=== PATIENT | female | born 1985 | race Caucasian/White ===

== ENCOUNTER 2022-09-11 18:55 | Emergency (ER) | payer OTHER, MEDICAID, SELFPAY ==
[2022-09-11] VITALS (12 sets, daily range): BP systolic 101–135; BP diastolic 61–81; PULSE 78–91; RESP 12–23; TEMP 36.7; O2SAT 96–100; BMI 31.6
--- NOTE | 2022-09-11 19:03 | DI.RAD.S_ITS ---
PROCEDURE: XR CHEST 1V INDICATIONS: chest pain TECHNIQUE: One view of the chest was acquired. COMPARISON: None. FINDINGS: Surgical changes and devices: None. Lungs and pleura: Lungs are clear. No pleural effusions or pneumothorax. Mediastinum: Mediastinal contours appear normal. Heart size is normal. Bones and chest wall: No suspicious bony lesions. Overlying soft tissues appear unremarkable. There is leftward curvature of the thoracic spine. IMPRESSION: No acute cardiopulmonary abnormality. Dictated by: Miguel A Jackson M.D. on 09/11/2022 at 18:39 Approved by: Miguel A Jackson M.D. on 09/11/2022 at 18:40
--- NOTE | 2022-09-11 19:13 | PC.NURSE ---
Recently off amlodipine 3-4 days ago. Recent weight loss of 29 lbs in about 3-4 months.
[2022-09-11 19:17] LABS: INR 0.9 (0.9-1.3); Prothrombin Time 10.5 SECONDS (10.1-12.7)
[2022-09-11 19:18] LABS: Add Manual Diff / Slide Review NO; Basophils Absolute Auto 200 /uL (0-100); Basophils Percent Auto 2.1 % (0-2); Eosinophils Absolute Auto 200 /uL (0-450); Eosinophils Percent Auto 2.3 % (2-4); Hematocrit 42.5 % (36-46); Hemoglobin 14.4 g/dL (12.0-16.0); Lymphocytes Absolute Auto 2400 /uL (1100-4500); Lymphocytes Percent Auto 28.3 % (25-40); Mean Corpuscular Hemoglobin 31.8 PG (26-34); Mean Corpuscular Volume 93.5 fL (80-100); Monocytes Absolute Auto 500 /uL (0-900); Monocytes Percent Auto 6.3 % (3-14); Neutrophils Absolute Auto 5300 /uL (1500-7000); Platelet Count 278 X10^3/uL (150-400); Red Blood Cell Count 4.54 X10^6/uL (4.0-5.2); White Blood Cell Count 8.6 X10^3/uL (4.5-11.0)
[2022-09-11 19:19] LABS: PTT Partial Thromboplastin Tim 26 SECONDS (26-36)
[2022-09-11] MEDS: ASPIRIN 81 MG CHEW TAB 324 MG PO (19:20)
[2022-09-11 19:21] LABS: Alanine Aminotransferase 23 IU/L (<35); Albumin 4.2 g/dL (3.5-5.0); Albumin Globulin Ratio 1.2 (1.0-2.8); Alkaline Phosphatase 66 U/L (38-126); Aspartate Aminotransferase 23 IU/L (14-36); BUN Creatinine Ratio 14.1 (6-22); Bilirubin Total 0.3 mg/dL (0.2-1.3); Blood Urea Nitrogen 10 mg/dL (7-17); Calcium 9.2 mg/dL (8.4-10.2); Carbon Dioxide 18 mmol/L (22-32); Chloride 107 mmol/L (98-107); Creatine Kinase 48 U/L (30-135); Estimated Glomerular Filt Rate > 60 mL/min (>60); Globulin 3.5 g/dL (1.7-4.1); Glucose 101 mg/dL (70-100); HEMOLYSIS < 15 (0-50); Lipase 79 U/L (23-300); Magnesium 2.1 mg/dL (1.6-2.3); Potassium 3.7 mmol/L (3.4-5.1); Sodium 139 mmol/L (137-145); Total Protein 7.7 g/dL (6.3-8.2)
[2022-09-11 19:32] LABS: Troponin I < 0.012 ng/mL (0.01-0.034)
[2022-09-11 19:38] LABS: D Dimer 1664 ng/ml (<500)
[2022-09-11] MEDS: SODIUM CHLORIDE 0.9% 1,000 ML 1000 ML IV (19:49)
--- NOTE | 2022-09-11 20:29 | PC.NURSE ---
Recent travel one week ago via airplane. Pt is on control. Provider aware.
--- NOTE | 2022-09-11 21:17 | ED.SYNCOPE ---
HPI - Syncope General Chief Complaint: Syncope Stated Complaint: Syncope Time Seen by Provider: 09/11/22 20:16 Source: EMS Mode of arrival: EMS History of Present Illness HPI narrative: Patient is a healthy 37-year-old female who presents today after syncopal episode. He reports that he has been on a high-protein diet prescribed by her doctor doing exercise she is been losing weight she ate today. She sat down to have dinner she felt a little dizzy lightheaded stood up thought she could go to the bathroom then quickly sat back down and passed out. There was a brief loss consciousness. Slightly hypotensive for EMS but now improving. No numbness tingling weakness. She reports that she flew to [place] last week she takes control. She denies chest pain palpitations or shortness of breath. No fever or chills. Related Data Allergies Allergy/AdvReac Type Severity Reaction Status Date / Time No Known Drug Allergies Allergy Verified 09/11/22 19:03 Review of Systems Review of Systems ROS Unobtainable: All systems reviewed & are unremarkable except as noted in HPI and below Patient History Social History Smoking Status: Never smoker Smoking Status: Never smoker alcohol intake frequency: a few times a month Substance Use Type: marijuana Exam Initial Vital Signs Initial Vital Signs: Vital Signs Temperature 98.1 F 09/11/22 18:59 Pulse Rate 79 09/11/22 18:59 Respiratory Rate 12 09/11/22 18:59 Blood Pressure 106/61 09/11/22 18:59 Pulse Oximetry 100 09/11/22 18:59 Oxygen Delivery Method Room Air 09/11/22 18:59 GENERAL: Alert very pleasant 37-year-old female HEENT: Head atraumatic,EOMI, pupils reactive, face symmetric, moist mucous membranes NECK: No vertebral tenderness full range of motion mild tenderness on the left side CARDIOVASCULAR: Regular rate and rhythm without murmurs, rubs or gallops. RESPIRATORY: Breath sounds equal bilaterally, no wheezes rales or rhonchi. ABDOMEN: Soft, nontender. Normoactive bowel sounds all 4 quadrants. No guarding or rebound. EXTREMITIES: Normal range of motion, no clubbing or edema. Neurovascularly intact NEUROLOGICAL: Alert and oriented x4. SKIN: Warm, dry, no laceration, no petechiae, no rashes or lesions. Course Orders Ordered: ED Orders 09/11/22 21:26 CT angio chest PE protocol Stat 09/11/22 21:27 CT cervical spine wo con Stat Discontinued Medications Aspirin (Aspirin 81 Mg Chew Tab) 324 mg PO NOW ONE Stop: 09/11/22 19:04 Last Admin: 09/11/22 19:20 Dose: 324 mg Documented By: SONAL Sodium Chloride (Normal Saline 0.9%) 1,000 mls @ 1,000 mls/hr IV BOLUS ONE Stop: 09/11/22 20:27 Last Infusion: 09/11/22 22:35 Dose: 0 mls/hr Documented By: Admin: 09/11/22 19:49 Dose: 1,000 mls/hr Documented By: SONAL Vital Signs Vital signs: Vital Signs - 8 hr 09/11/22 20:35 09/11/22 21:31 09/11/22 22:03 Pulse Rate 84 82 80 Pulse Rate [Orthostatic Lying] Pulse Rate [Orthostatic Sitting] Pulse Rate [Orthostatic Standing] Respiratory Rate 16 16 18 Blood Pressure 104/63 110/64 110/64 Blood Pressure [Orthostatic Lying] Blood Pressure [Orthostatic Sitting] Blood Pressure [Orthostatic Standing] Pulse Oximetry 97 97 96 Oxygen Delivery Method Room Air Room Air Room Air 09/11/22 23:06 09/11/22 23:17 09/11/22 23:38 Pulse Rate 81 80 Pulse Rate [Orthostatic Lying] 80 Pulse Rate [Orthostatic Sitting] 90 Pulse Rate [Orthostatic Standing] 91 H Respiratory Rate 21 23 Blood Pressure 110/67 112/61 Blood Pressure [Orthostatic Lying] 106/69 Blood Pressure [Orthostatic Sitting] 124/78 Blood Pressure [Orthostatic Standing] 135/81 Pulse Oximetry 96 96 Oxygen Delivery Method Room Air MDM - Syncope Lab Data 09/11/22 19:00 09/11/22 19:00 Labs: Lab Results 09/11/22 09/11/22 09/11/22 Range/Units 19:00 19:00 19:00 WBC 8.6 (4.5-11.0) X10^3/uL RBC 4.54 (4.0-5.2) X10^6/uL Hgb 14.4 (12.0-16.0) g/dL Hct 42.5 (36-46) % MCV 93.5 (80-100) fL MCH 31.8 (26-34) PG MCHC 34.0 (30-36) % RDW 13.0 (11.6-14.8) % Plt Count 278 (150-400) X10^3/uL Neut % (Auto) 61.0 (50-75) % Lymph % (Auto) 28.3 (25-40) % Whitfield % (Auto) 6.3 (3-14) % Eos % (Auto) 2.3 (2-4) % Baso % (Auto) 2.1 H (0-2) % Neut # (Auto) 5300 (5656-5390) /uL Lymph # (Auto) 2400 (4405-8547) /uL Whitfield # (Auto) 500 (0-900) /uL Eos # (Auto) 200 (0-450) /uL Baso # (Auto) 200 H (0-100) /uL PT 10.5 (10.1-12.7) SECONDS INR 0.9 (0.9-1.3) APTT 26 (26-36) SECONDS D-Dimer (<500) ng/ml Sodium 139 (137-145) mmol/L Potassium 3.7 (3.4-5.1) mmol/L Chloride 107 (98-107) mmol/L Carbon Dioxide 18 L (22-32) mmol/L BUN 10 (7-17) mg/dL Creatinine 0.71 (0.52-1.04) mg/dL Estimated GFR > 60 (>60) mL/min BUN/Creatinine Ratio 14.1 (6-22) Glucose 101 H (70-100) mg/dL Lactate (0.7-2.1) mmol/L Calcium 9.2 (8.4-10.2) mg/dL Magnesium 2.1 (1.6-2.3) mg/dL Total Bilirubin 0.3 (0.2-1.3) mg/dL AST 23 (14-36) IU/L ALT 23 (<35) IU/L Alkaline Phosphatase 66 (38-126) U/L Total Creatine Kinase 48 (30-135) U/L CK-MB (CK-2) TNP CK-MB (CK-2) Rel Index TNP Troponin I < 0.012 (0.01-0.034) ng/mL Total Protein 7.7 (6.3-8.2) g/dL Albumin 4.2 (3.5-5.0) g/dL Globulin 3.5 (1.7-4.1) g/dL Albumin/Globulin Ratio 1.2 (1.0-2.8) Lipase 79 (23-300) U/L Serum , Qual (Negative) 09/11/22 09/11/22 09/11/22 Range/Units 19:00 19:00 19:00 WBC (4.5-11.0) X10^3/uL RBC (4.0-5.2) X10^6/uL Hgb (12.0-16.0) g/dL Hct (36-46) % MCV (80-100) fL MCH (26-34) PG MCHC (30-36) % RDW (11.6-14.8) % Plt Count (150-400) X10^3/uL Neut % (Auto) (50-75) % Lymph % (Auto) (25-40) % Whitfield % (Auto) (3-14) % Eos % (Auto) (2-4) % Baso % (Auto) (0-2) % Neut # (Auto) (1810-0420) /uL Lymph # (Auto) (8824-5514) /uL Whitfield # (Auto) (0-900) /uL Eos # (Auto) (0-450) /uL Baso # (Auto) (0-100) /uL PT (10.1-12.7) SECONDS INR (0.9-1.3) APTT (26-36) SECONDS D-Dimer 1664 H (<500) ng/ml Sodium (137-145) mmol/L Potassium (3.4-5.1) mmol/L Chloride (98-107) mmol/L Carbon Dioxide (22-32) mmol/L BUN (7-17) mg/dL Creatinine (0.52-1.04) mg/dL Estimated GFR (>60) mL/min BUN/Creatinine Ratio (6-22) Glucose (70-100) mg/dL Lactate 2.6 H (0.7-2.1) mmol/L Calcium (8.4-10.2) mg/dL Magnesium (1.6-2.3) mg/dL Total Bilirubin (0.2-1.3) mg/dL AST (14-36) IU/L ALT (<35) IU/L Alkaline Phosphatase (38-126) U/L Total Creatine Kinase (30-135) U/L CK-MB (CK-2) CK-MB (CK-2) Rel Index Troponin I (0.01-0.034) ng/mL Total Protein (6.3-8.2) g/dL Albumin (3.5-5.0) g/dL Globulin (1.7-4.1) g/dL Albumin/Globulin Ratio (1.0-2.8) Lipase (23-300) U/L Serum , Qual Negative (Negative) Imaging Data Chest x-ray: Radiologist's Impression: PROCEDURE:? XR CHEST 1V ? INDICATIONS:? chest pain ? TECHNIQUE:? One view of the chest was acquired.? ? COMPARISON:? None. ? FINDINGS:? ? Surgical changes and devices:? None.? ? Lungs and pleura:? Lungs are clear.? No pleural effusions or pneumothorax.? ? Mediastinum:? Mediastinal contours appear normal.? Heart size is normal.? ? Bones and chest wall:? No suspicious bony lesions.? Overlying soft tissues appear unremarkable.? There is leftward curvature of the thoracic spine. ? IMPRESSION:? No acute cardiopulmonary abnormality. ? ? ? Dictated by: Miguel A Jackson M.D. on 09/11/2022 at 18:39 ? ? Approved by: Miguel A Jackson M.D. on 09/11/2022 at 18:40? CT scan - chest: Radiologist's Impression: PROCEDURE:? CT ANGIO CHEST PE PROTOCOL ? INDICATIONS:? syncope + dimer travel r/o pe ? TECHNIQUE:? After the administration of intravenous contrast, 2 mm thick sections acquired from the pulmonary apices to the posterior costophrenic angles.? 3-dimensional maximum intensity projection (MIP) coronal and sagittal reformats were then acquired through the thorax.? For radiation dose reduction, the following was used:? automated exposure control, adjustment of mA and/or kV according to patient size.? ? COMPARISON:? [facility], , XR CHEST 1V, 09/11/2022, 19:02. ? FINDINGS:? Image quality:? Excellent.? ? Pulmonary arteries:? Pulmonary arteries are normal in size, and demonstrate no intraluminal filling defects to suggest central pulmonary embolism.? ? Lungs and pleura:? Lungs are clear.? No pleural effusions or pneumothorax.? Central and peripheral airways are patent.? ? Mediastinum:? Heart size is normal, without pericardial effusion.? No mediastinal or hilar adenopathy.? Thoracic aorta is normal in caliber and enhancement.? Esophagus is normal in caliber, without hiatal hernia.? ? Bones and chest wall:? No suspicious bony lesions.? Ribs and thoracic spine appear intact throughout.? Thyroid gland is unremarkable.? No axillary or supraclavicular adenopathy.? ? Abdomen:? Visualized upper abdominal solid organs appear normal in the early arterial phase of enhancement.? ? IMPRESSION:? ? Lungs are clear.? No pulmonary embolism. ? ? Dictated by: Cindy Tello M.D. on 09/11/2022 at 22:53 ? ? Approved by: Cindy Tello M.D. on 09/11/2022 at 22:5 CT - cervical spine: Radiologist's Impression: PROCEDURE:? CT CERVICAL SPINE WO CON ? INDICATIONS:? tender left after fall ? TECHNIQUE:? Noncontrast 3 mm thick sections acquired from the skull base to the T4 level.? Sagittal and coronal reformats were then constructed.? For radiation dose reduction, the following was used:? automated exposure control, adjustment of mA and/or kV according to patient size.? ? COMPARISON:? None. ? FINDINGS:? Image quality:? Excellent.? ? Bones:? No fractures or dislocations.? Visualized superior ribs are intact.? ? Soft tissues:? Prevertebral soft tissues are normal in thickness.? No paravertebral hematomas.? No apical pneumothoraces.? ? ? IMPRESSION:? Visualized fracture. ? Dictated by: Cindy Tello M.D. on 09/11/2022 at 22:52 ? ? Approved by: Cindy Tello M.D. on 09/11/2022 at 22:53 ? ECG Data Interpretation: Sinus rhythm rate 84 DC interval 154 QRS QTC 477 Q-wave noted in lead 3 with T-wave inversions will priors to compare MDM Narrative Medical decision making narrative: Patient is a healthy 37 year female who presents today after a syncopal. Mild neck pain slightly hypotensive vasovagal. Blood work is overall reassuring without anemia leukocytosis electrolyte abnormality or REYNA. D-dimer was checked with a syncopal episode recent travel and control. It is actually quite elevated at [address] angio was done and ruled out pulmonary embolism CT cervical spine also did not show any fracture. At this time patient requires no further imaging or workup in the emergency department she is overall feeling better ready able to go home Discharge Plan Departure Patient Disposition: Home Clinical Impression: Vasovagal syncope Instructions: DI for Syncope in Adults (Fainting) Activity Restrictions/Additional Instructions: *You have been diagnosed with fainting episode *What to do: At this time blood work and workup is reassuring and negative. No evidence of blood clot. Please continue to eat and drink regularly *Continue to take medications as directed Hold off Benicar for about 1 week and continue to check your blood pressure. If it is rising greater than 140 consistently and please resume your Benicar however if it is staying under 130 discuss with your PCP *Follow up with your primary care provider in 2-3 days or call [phone] *Return to ER if you should have recurrent episode of passing out chest pain shortness of breath or any new, worsening or concerning symptoms Referrals: Miscellaneous,Doctor, [Primary Care Provider] - Stand Alone Forms: Patient Portal/API
--- NOTE | 2022-09-11 21:26 | DI.CT.S_ITS ---
PROCEDURE: CT ANGIO CHEST PE PROTOCOL INDICATIONS: syncope + dimer travel r/o pe TECHNIQUE: After the administration of intravenous contrast, 2 mm thick sections acquired from the pulmonary apices to the posterior costophrenic angles. 3-dimensional maximum intensity projection (MIP) coronal and sagittal reformats were then acquired through the thorax. For radiation dose reduction, the following was used: automated exposure control, adjustment of mA and/or kV according to patient size. COMPARISON: [facility], CR, XR CHEST 1V, 09/11/2022, 19:02. FINDINGS: Image quality: Excellent. Pulmonary arteries: Pulmonary arteries are normal in size, and demonstrate no intraluminal filling defects to suggest central pulmonary embolism. Lungs and pleura: Lungs are clear. No pleural effusions or pneumothorax. Central and peripheral airways are patent. Mediastinum: Heart size is normal, without pericardial effusion. No mediastinal or hilar adenopathy. Thoracic aorta is normal in caliber and enhancement. Esophagus is normal in caliber, without hiatal hernia. Bones and chest wall: No suspicious bony lesions. Ribs and thoracic spine appear intact throughout. Thyroid gland is unremarkable. No axillary or supraclavicular adenopathy. Abdomen: Visualized upper abdominal solid organs appear normal in the early arterial phase of enhancement. IMPRESSION: Lungs are clear. No pulmonary embolism. Dictated by: Cindy Tello M.D. on 09/11/2022 at 22:53 Approved by: Cindy Tello M.D. on 09/11/2022 at 22:54
--- NOTE | 2022-09-11 21:27 | DI.CT.S_ITS ---
PROCEDURE: CT CERVICAL SPINE WO CON INDICATIONS: tender left after fall TECHNIQUE: Noncontrast 3 mm thick sections acquired from the skull base to the T4 level. Sagittal and coronal reformats were then constructed. For radiation dose reduction, the following was used: automated exposure control, adjustment of mA and/or kV according to patient size. COMPARISON: None. FINDINGS: Image quality: Excellent. Bones: No fractures or dislocations. Visualized superior ribs are intact. Soft tissues: Prevertebral soft tissues are normal in thickness. No paravertebral hematomas. No apical pneumothoraces. IMPRESSION: Visualized fracture. Dictated by: Cindy Tello M.D. on 09/11/2022 at 22:52 Approved by: Cindy Tello M.D. on 09/11/2022 at 22:53
[2022-09-11 21:42] LABS: Lactate (Lactic Acid) 2.6 mmol/L (0.7-2.1)
[2022-09-11 21:58] LABS: Pregnancy Test Serum,Qual Negative (Negative)
[2022-09-11 23:28] LABS: Reflexed Lactate in 2 Hours Y
== END 2022-09-12 00:07 | disposition home or self-care (01) ==
PROVIDERS: Emergency Provider Emergency Medicine
DX: R55 Syncope and collapse (principal); R07.9 Chest pain, unspecified; M54.2 Cervicalgia
CPT/HCPCS: 36415; 71045; 71275; 72125; 80053; 82550; 83605; 83690; 83735; 84484; 84703; 85025; 85379; 85610; 85730; 93005; 93010; 99284; 99285; Q9967